=== PATIENT | female | born 1985 | race Caucasian/White ===

== ENCOUNTER 2024-06-12 04:20 | Day surgery (SDC) | payer OTHER ==
[2024-06-12] MEDS ORDERED: LIDOCAINE HCL 1%, 10 MG/ML (20ML VIAL) ONE (11:18)
[2024-06-12] MEDS ORDERED: PROPOFOL 40 ML ONE (11:19)
[2024-06-12] MEDS ORDERED: MIDAZOLAM HCL 2 MG/2 ML SINGLE DOSE VIAL ONE (11:19)
[2024-06-12] MEDS ORDERED: ceFAZolin SODIUM 1 GM VIAL ONE (11:20)
[2024-06-12] MEDS: ceFAZolin SODIUM 1 GM VIAL IVPB ONE (11:42)
[2024-06-12] MEDS ORDERED: ACETAMINOPHEN INJECTION 100 ML ONE (11:50)
[2024-06-12] MEDS: LIDOCAINE HCL 1%, 10 MG/ML (20ML VIAL) INF ONE ×2 (11:56)
[2024-06-12] MEDS ORDERED: oxyCODONE HCL 5 MG TABLET PO PRN (12:10)
[2024-06-12] MEDS ORDERED: LACTATED RINGERS SOLUTION 1,000 ML IV SCH (12:15)
[2024-06-12] MEDS ORDERED: ONDANSETRON 4 MG/2 ML VIAL ONE (14:39)
[2024-06-12] MEDS: ONDANSETRON 4 MG/2 ML VIAL IVPUSH PRN (14:48)
== END 2024-06-12 15:56 | disposition home or self-care (01) ==
LOC: JASU-SURG 04:20
PROVIDERS: ATTEND Surgery
PROC: 0HBU0ZX Excision of Left Breast, Open Approach, Diagnostic (ICD-10-PCS; principal; 2024-06-12 11:00)
DX: D24.2 Benign neoplasm of left breast (principal)
CPT/HCPCS: 76098-TC-FY; 81025; 88307-TC; 94760; J0131